=== PATIENT | male | born 1955 | race Caucasian/White ===

== ENCOUNTER 2016-12-31 15:29 | Inpatient (IN) | payer OTHER ==
[~2016-12-31] VITALS: Ht 182.9 cm; Wt 101.0 kg
[2016-12-31 15:31] VITALS: BP 144/91; PULSE 86; RESP 14; O2SAT 98
--- NOTE | 2016-12-31 18:26 | ED.REPORT ---
HPI-Extremity Problem Lower Date of Service Dec 31, 2016 ED Provider: Cecilia Ricketts MD This is a 61 year old male presenting with left lower extremity swelling that began one week ago. Pt states he first developed left calf pain. In the last 2 days, swelling and numbness has worsened in the L calf and is now present in the L ankle. Denies fever, chills, abdominal pain, chest pain, SOB, or diaphoresis. Denies recent prolonged periods of immobilization or recent surgeries. Pt has been going to physical therapy for L knee injury and last went one week ago when the symptoms began. Nursing Notes Stated Complaint: BLOOD CLOT IN LEFT LEG Chief Complaint: Extremity Trauma Nursing Notes Reviewed: Yes Allergies: Coded Allergies: No Known Allergies (Verified Allergy, Unknown, 04/06/14) Scheduled Ibuprofen (Advil) 200 Mg Capsule 200 MG PO MORNING General Time Seen by MD: 18:24 Chief Complaint Other Hx Obtained From: Patient Arrived By: Walk-in Onset Occurred: 1 week ago Symptom Duration: Since onset Severity: Current: Moderate Pertinent Negative: Pt denies other symptoms Recent Healthcare: No recent doctor visit, No recent hospitalization Similar Sx Previous: No Past Medical History Past Medical History Hx L knee injury, undergoing physical therapy at this time Past Surgical History Denies Ambulatory Status Independent Review of Systems Constitutional: Denies: Chills, Fever Musculoskeletal: Reports: Extremity pain, Extremity swelling, Denies: Back pain, Neck pain Neurologic: Reports: Numbness, Denies: Headache, Weakness Complete sys rev & neg: except as marked. Respiratory: Denies: Non-productive cough, Shortness of breath Cardiovascular: Denies: Chest pain GI: Denies: Abdominal pain, Nausea, Vomiting Physical Exam Initial Vital Signs Vital Signs (First) Date Time Temp Pulse Resp B/P Pulse Ox O2 Delivery O2 Flow Rate FiO2 12/31/16 15:31 37.0 86 14 144/91 98 Room Air Initial VS: Reviewed General/Constitutional: Well-developed, Well-nourished Head / Eyes: Atraumatic, Normocephalic, PERRL ENT: Mucous membranes moist, Conjunctiva normal, No scleral icterus Neck: Supple, Non-tender, Full range of motion Respiratory: Breath sounds normal, Clear to auscultation, No respiratory distress Cardiovascular: Regular rate & rhythm, Heart sounds normal, Intact distal pulses Abdomen / GI: Soft, Non-tender, No guarding, No rebound, No distention Upper Extremities: Vascular intact, Neuro intact, No swelling, No tenderness Skin: Warm, Dry, No cyanosis Neurologic: Alert, Oriented, Nonfocal Psychiatric: Mood/affect normal, Behavior normal, Normal thought content Lower Extremity / Pelvis / MS: Full range of motion, Vascular intact L calf significantly larger than R Ankle / Foot: Full range of motion, Neurologic intact, Vascular intact 2+ DP and PT pulses Interpretation & Diagnostics Interpretation & Diagnostics: VENOUS DUPLEX LEFT IMPRESSION: Thrombus within the distal superficial femoral vein, popliteal, and posterior tibial veins. These findings were discussed with the emergency room physician by the docent coordinator at the time of the study. Dictated by: Ellie Otero M.D. on 12/31/2016 at 19:16 Approved by: Ellie Otero M.D. on 12/31/2016 at 19:17 Lab Results Interpretation Result Diagram: 12/31/16 1920 12/31/16 1920 Test 12/31/16 19:19 12/31/16 19:20 Urine Color Yellow (YELLOW) Urine Appearance Clear (CLEAR,HAZY) Urine pH 5.0 (5.0-8.0) Urine Specific [place] 1.028 (1.003-1.035) Urine Protein Negativemg/dL (NEG,TRACE) Urine Glucose (UA) Negativemg/dL (NEGATIVE) Urine Ketones 40mg/dL (NEGATIVE) Urine Occult Blood Small (NEGATIVE) Urine Nitrite Negative (NEGATIVE) Urine Bilirubin Negative (NEGATIVE) Urine Urobilinogen Normalmg/dL (NORMAL) Urine Leukocyte Esterase Negative (NEGATIVE) Urine RBC 0-2/hpf (0-2) Urine WBC 0-5/hpf (0-5) Urine Epithelial Cells None/hpf (NONE-MOD) Urine Crystals None seen (NONE SEEN) Urine Bacteria None/hpf (NONE-FEW) Urine Hyaline Casts None/lpf (NONE) Urine Granular Casts None seen (NONE SEEN) Urine Waxy Casts None seen (NONE SEEN) Urine Red Blood Cell Casts None seen (NONE SEEN) Urine White Blood Cell Casts None seen (NONE SEEN) Urine Mucus None seen (None Seen) Urine Trichomonas None seen (NONE SEEN) Urine Yeast None (NONE SEEN) Urinalysis Comment None Urine Culture Reflexed Not indicated White Blood Count 8.4th/mm3 (3.8-10.1) Red Blood Count 5.80mil/mm3 (4.40-5.80) Hemoglobin 16.2g/dL (13.8-17.2) Hematocrit 49.7% (41.0-50.0) Mean Corpuscular Volume 85.7fL (81-100) Mean Corpuscular Hemoglobin 27.9pg (27.0-35.0) Mean Corpuscular Hemoglobin Concent 32.6% (32.0-37.0) Red Cell Distribution Width 13.5% (12.3-15.4) Platelet Count 182bil/L (150-400) Neutrophils (%) (Auto) 67.0% (40-74) Lymphocytes (%) (Auto) 19.3% (14-46) Monocytes (%) (Auto) 7.9% (4-12) Eosinophils (%) (Auto) 5.0% (0-5) Basophils (%) (Auto) 0.6% (0-3) Prothrombin Time 11.2sec (8.1-12.5) Prothromb Time International Ratio 1.05ratio Hold Urine Received (Received) Sodium Level 136mEq/L (134-144) Potassium Level 4.2mEq/L (3.5-5.2) Chloride Level 95mEq/L (97-108) Carbon Dioxide Level 25mmol/L (18-29) Blood Urea Nitrogen 19mg/dL (6-24) Creatinine 0.70mg/dL (0.76-1.27) Estimat Glomerular Filtration Rate 123mL/min (>59) Glucose Level 77mg/dL (60-99) Calcium Level 9.3mg/dL (8.5-10.1) Re-Eval/Medical Decision Med Decision/Clinical Course 61-year-old male with no past medical history here with left lower extremity redness and swelling. Differential diagnosis includes but is not limited to DVT versus cellulitis versus dependent edema versus bony injury. Patient's exam is most consistent with DVT. His ultrasound is positive for DVT. At this time, I do not feel he requires x-rays or further imaging. He was started on Lovenox in the emergency department, and admitted to the hospitalist for bridging to Coumadin. He is wearing amenable to admission at this time. He had no chest pain or shortness of breath, and I do not feel he requires CTA to rule out PE. Re-Evaluation/Progress : Time of Eval: 19:36 Re-Evaluation/Progress Note: Discussed US results and need for admission. Pt understands and agrees with plan, all questions addressed. Consultation : Referral / Consult Name: Solange Askew MD Consulted With: Hospitalist Call Returned at: 19:43 Veterinary Pathologist: Accepts admit Counseled Regarding: Diagnosis, Lab results, Need for follow-up, Need for admission Discharge & Departure Impression: Primary Impression: DVT (deep venous thrombosis) DVT location: lower extremity Affected thrombotic vein of extremity: unspecified vein of extremity Laterality: left Chronicity: acute Qualified Code: I82.402 - Acute embolism and thrombosis of unspecified deep veins of left lower extremity Disposition: ADMITTED TO HOSPITAL Discharge Condition All VS Reviewed: Yes Condition: Stable Referrals: Wallace Perez MD (PCP) Scribe Attestation Portions of this note were transcribed by Caroline Silverio. I, Dr. Ricketts personally performed the history, physical exam and medical decision-making; I reviewed and confirmed the accuracy of the information in the transcribed note. Signed by: althea Valdivia. 12/31/2016, 23:00. Cecilia Ricketts MD Dec 31, 2016 18:26 CAROLINE SILVERIO Dec 31, 2016 18:37
[2016-12-31 19:03] VITALS: BP 157/89; PULSE 80; O2SAT 97
--- NOTE | 2016-12-31 19:18 | DRSVH ---
PROCEDURE: US VEINOUS LEG DUPLEX UNILATERAL, LEFT INDICATIONS: SWOLLEN LEFT LEG TECHNIQUE: Real-time imaging, as well as color and pulse Doppler interrogation, were performed of the lower extr emity deep veins from the inguinal ligament to the popliteal fossa. COMPARISON: None. FINDINGS: Occlusive thrombus is visualized within the distal left superficial femoral vein, the popli teal vein, and the posterior tibial vein. The common femoral vein and the superior aspect of the supe rficial femoral vein are patent. IMPRESSION: Thrombus within the distal superficial femoral vein, popliteal, and posterior tibial vein s. These findings were discussed with the emergency room physician by the jacker at the time of the study. Dictated by: Ellie Otero M.D. on 12/31/2016 at 19:16 Approved by: Ellie Otero M.D. on 12/31/2016 at 19:17
[2016-12-31 19:30] LABS: BASOPHILS % (AUTO) 0.6 % (0-3); MONOCYTES % (AUTO) 7.9 % (4-12); Mean Corpuscular Hemoglobin 27.9 pg (27.0-35.0); Mean Corpuscular Volume 85.7 fL (81-100); Platelet Count 182 bil/L (150-400)
[2016-12-31 19:59] LABS: INR 1.05 ratio
[2016-12-31] MEDS ORDERED: Alum-Mag Hydrox-Simeth 30 mL Suspension PO PRN ×2 (20:35→21:10)
[2016-12-31] MEDS ORDERED: Ondansetron 2 mg/mL 2 mL Inj IVPUSH PRN ×2 (20:35→21:10)
--- NOTE | 2016-12-31 20:55 | NUR ---
Admit Patient arrived from ED at 2054, received report from ED RN. Patient A&O, denies CP, SOB, and abdominal discomfort at this time. Oriented to room, call light, phone, and all belongings accounted for.
[2016-12-31 21:03] LABS: APPEARANCE,URINE CLEAR (CLEAR,HAZY); COLOR,URINE YELLOW (YELLOW)
[2016-12-31 21:04] LABS: OCCULT BLOOD,URINE SMALL (NEGATIVE); UROBILINOGEN,URINE NORMAL (NORMAL)
[2016-12-31 21:10] VITALS: BP 154/86; PULSE 72; RESP 18; O2SAT 97
[2016-12-31] MEDS ORDERED: Polyethylene Glycol (PEG) 17 Gm Powder PO PRN (21:10)
[2016-12-31] MEDS ORDERED: IBUP200C11 PO (21:26)
--- NOTE | 2016-12-31 21:30 | PCM.HPMED ---
Subjective Date of Service Dec 31, 2016 Primary Provider: Admitting Physician: Solange Askew MD Primary Care Physician: Wallace Perez MD Attending Physician: Solange Askew MD Admit Status: From the Emergency Department, 23-Hour Observation, Non-Telemetry Chief Complaint: Left leg swelling 1 day History of Present Illness: This is a 61-year-old male who had been having some left knee problems over the past several months. He has been going to physical therapy for this as ordered by his primary care provider. He notes no significant improvement in the pain. He notes nothing unusual that occurred recently no immobilization for a long period of time with travel no injury recently and yesterday noticed increased swelling of his left leg up to about his knee area. He denies any chest pain or shortness of breath. Eyes any fevers or chills. His evaluation in the emergency room includes left venous duplex which shows thrombus within the distal superficial femoral vein and popliteal and posterior tibial veins. He notes no prior history of similar. He does note that both his sister and mother have a history of blood clots. He is not aware that they had been tested for any inherited coagulopathy. Review of Systems: All other review of systems are reviewed and are negative except for as in history of present illness Allergies Coded Allergies: No Known Allergies (Verified Allergy, Unknown, 04/06/14) Home Medications None per patient PMH Past Medical History Hx L knee injury, undergoing physical therapy at this time Past Surgical History Denies Family History Mother and sister with a history of DVTs Social History Hx Alcohol Use: Yes (1 drink/week) Hx Substance Use: No Hx Tobacco Use: No Living Arrangement: with Family Exam Vital Signs Vital Sign - Last Date Time Temp Pulse Resp B/P Pulse Ox O2 Delivery O2 Flow Rate FiO2 12/31/16 21:10 37.0 72 18 154/86 97 Room Air Exam Constitutional: Middle-aged man in no acute distress Head: Normocephalic atraumatic Eyes: PERRLA DC EOMI Mouth: No lesions Neck no adenopathy Chest clear to auscultation Cor regular rate and rhythm S1-S2 without murmur Abdomen is soft nontender bowel sounds present extremity exam right is no pedal edema left reveals welling extending up to just below his knee. No erythema noted no rash noted area are some tenderness to palpation over his left calf area. Vascular is intact of the bilateral extremities. Lab and Diagnostics Labs Laboratory Tests 72 Hours Test 12/31/16 19:19 12/31/16 19:20 Urine Color Yellow (YELLOW) Urine Appearance Clear (CLEAR,HAZY) Urine pH 5.0 (5.0-8.0) Urine Specific [place] 1.028 (1.003-1.035) Urine Protein Negativemg/dL (NEG,TRACE) Urine Glucose (UA) Negativemg/dL (NEGATIVE) Urine Ketones 40mg/dL (NEGATIVE) Urine Occult Blood Small (NEGATIVE) Urine Nitrite Negative (NEGATIVE) Urine Bilirubin Negative (NEGATIVE) Urine Urobilinogen Normalmg/dL (NORMAL) Urine Leukocyte Esterase Negative (NEGATIVE) Urine RBC 0-2/hpf (0-2) Urine WBC 0-5/hpf (0-5) Urine Epithelial Cells None/hpf (NONE-MOD) Urine Crystals None seen (NONE SEEN) Urine Bacteria None/hpf (NONE-FEW) Urine Hyaline Casts None/lpf (NONE) Urine Granular Casts None seen (NONE SEEN) Urine Waxy Casts None seen (NONE SEEN) Urine Red Blood Cell Casts None seen (NONE SEEN) Urine White Blood Cell Casts None seen (NONE SEEN) Urine Mucus None seen (None Seen) Urine Trichomonas None seen (NONE SEEN) Urine Yeast None (NONE SEEN) Urinalysis Comment None Urine Culture Reflexed Not indicated White Blood Count 8.4th/mm3 (3.8-10.1) Red Blood Count 5.80mil/mm3 (4.40-5.80) Hemoglobin 16.2g/dL (13.8-17.2) Hematocrit 49.7% (41.0-50.0) Mean Corpuscular Volume 85.7fL (81-100) Mean Corpuscular Hemoglobin 27.9pg (27.0-35.0) Mean Corpuscular Hemoglobin Concent 32.6% (32.0-37.0) Red Cell Distribution Width 13.5% (12.3-15.4) Platelet Count 182bil/L (150-400) Neutrophils (%) (Auto) 67.0% (40-74) Lymphocytes (%) (Auto) 19.3% (14-46) Monocytes (%) (Auto) 7.9% (4-12) Eosinophils (%) (Auto) 5.0% (0-5) Basophils (%) (Auto) 0.6% (0-3) Prothrombin Time 11.2sec (8.1-12.5) Prothromb Time International Ratio 1.05ratio Hold Urine Received (Received) Sodium Level 136mEq/L (134-144) Potassium Level 4.2mEq/L (3.5-5.2) Chloride Level 95mEq/L (97-108) Carbon Dioxide Level 25mmol/L (18-29) Blood Urea Nitrogen 19mg/dL (6-24) Creatinine 0.70mg/dL (0.76-1.27) Estimat Glomerular Filtration Rate 123mL/min (>59) Glucose Level 77mg/dL (60-99) Calcium Level 9.3mg/dL (8.5-10.1) Result Diagram: 12/31/16191912/31/161919 X-Rays, CTs and MRIs PROCEDURE: US VEINOUS LEG DUPLEX UNILATERAL, LEFT INDICATIONS: SWOLLEN LEFT LEG TECHNIQUE: Real-time imaging, as well as color and pulse Doppler interrogation, were performed of the lower extremity deep veins from the inguinal ligament to the popliteal fossa. COMPARISON: None. FINDINGS: Occlusive thrombus is visualized within the distal left superficial femoral vein, the popliteal vein, and the posterior tibial vein. The common femoral vein and the superior aspect of the superficial femoral vein are patent. IMPRESSION: Thrombus within the distal superficial femoral vein, popliteal, and posterior tibial veins. These findings were discussed with the emergency room physician by the dance hall hostess at the time of the study. Dictated by: Ellie Otero M.D. on 12/31/2016 at 19:16 Approved by: Ellie Otero M.D. on 12/31/2016 at 19:17 12-lead ECG Pending at the time of this dictation Assessment & Plan # Left venous lower extremity DVT, acute, present on admission We will treat with therapeutic subcutaneous Lovenox and initiate warfarin as per pharmacy Check hypercoagulable workup # CODE STATUS Full code Time spent 40 minutes Solange Askew MD Dec 31, 2016 21:30
[2016-12-31] MEDS: HYDROcodone-APAP 5-325 mg Tablet PO PRN (23:06)
--- NOTE | 2016-12-31 23:38 | PCM.CONPHA ---
Subjective Date of Service: Dec 31, 2016 Requesting Provider: Solange Askew MD Left leg swelling 1 day Reason for Pharmacy Consult: Anticoagulation Management Objective Vital Signs Date Time Temp Pulse Resp B/P Pulse Ox O2 Delivery O2 Flow Rate FiO2 12/31/16 21:10 37.0 72 18 154/86 97 Room Air 12/31/16 19:03 37.1 80 157/89 97 Room Air 12/31/16 15:31 37.0 86 14 144/91 98 Room Air Weight (Kilograms): 101.000 Height (Feet): 6 Height (Inches): 0.00 Test 12/31/16 19:19 12/31/16 19:20 Urine Color Yellow (YELLOW) Urine Appearance Clear (CLEAR,HAZY) Urine pH 5.0 (5.0-8.0) Urine Specific [place] 1.028 (1.003-1.035) Urine Protein Negativemg/dL (NEG,TRACE) Urine Glucose (UA) Negativemg/dL (NEGATIVE) Urine Ketones 40mg/dL (NEGATIVE) Urine Occult Blood Small (NEGATIVE) Urine Nitrite Negative (NEGATIVE) Urine Bilirubin Negative (NEGATIVE) Urine Urobilinogen Normalmg/dL (NORMAL) Urine Leukocyte Esterase Negative (NEGATIVE) Urine RBC 0-2/hpf (0-2) Urine WBC 0-5/hpf (0-5) Urine Epithelial Cells None/hpf (NONE-MOD) Urine Crystals None seen (NONE SEEN) Urine Bacteria None/hpf (NONE-FEW) Urine Hyaline Casts None/lpf (NONE) Urine Granular Casts None seen (NONE SEEN) Urine Waxy Casts None seen (NONE SEEN) Urine Red Blood Cell Casts None seen (NONE SEEN) Urine White Blood Cell Casts None seen (NONE SEEN) Urine Mucus None seen (None Seen) Urine Trichomonas None seen (NONE SEEN) Urine Yeast None (NONE SEEN) Urinalysis Comment None Urine Culture Reflexed Not indicated White Blood Count 8.4th/mm3 (3.8-10.1) Red Blood Count 5.80mil/mm3 (4.40-5.80) Hemoglobin 16.2g/dL (13.8-17.2) Hematocrit 49.7% (41.0-50.0) Mean Corpuscular Volume 85.7fL (81-100) Mean Corpuscular Hemoglobin 27.9pg (27.0-35.0) Mean Corpuscular Hemoglobin Concent 32.6% (32.0-37.0) Red Cell Distribution Width 13.5% (12.3-15.4) Platelet Count 182bil/L (150-400) Neutrophils (%) (Auto) 67.0% (40-74) Lymphocytes (%) (Auto) 19.3% (14-46) Monocytes (%) (Auto) 7.9% (4-12) Eosinophils (%) (Auto) 5.0% (0-5) Basophils (%) (Auto) 0.6% (0-3) Prothrombin Time 11.2sec (8.1-12.5) Prothromb Time International Ratio 1.05ratio Hold Urine Received (Received) Sodium Level 136mEq/L (134-144) Potassium Level 4.2mEq/L (3.5-5.2) Chloride Level 95mEq/L (97-108) Carbon Dioxide Level 25mmol/L (18-29) Blood Urea Nitrogen 19mg/dL (6-24) Creatinine 0.70mg/dL (0.76-1.27) Estimat Glomerular Filtration Rate 123mL/min (>59) Glucose Level 77mg/dL (60-99) Calcium Level 9.3mg/dL (8.5-10.1) Assessment/Plan Assessment/Plan A: * Warfarin dosing by pharmacy for 61 y/o man with LLE DVT * He is being started on therapeutic enoxaparin 100 mg every 12 hours * INR is baseline at 1 * No significant drug interactions with warfarin and current medications P: * Give one dose of warfarin 5 mg tonight * Follow daily INR trend and determine dosing based on INR Thank you. Pharmacy will continue to follow. Corinna Whitten, PharmD Corinna Whitten Dec 31, 2016 23:38
[2017-01-01] MEDS: Sodium Chloride LOK Flush 10 mL Syringe IVFLUSH SCH ×3 (00:29→16:30)
[2017-01-01 01:00] VITALS: BP 104/63; PULSE 79; RESP 16; O2SAT 95
[2017-01-01 05:45] VITALS: BP 123/78; PULSE 61; RESP 16; O2SAT 96
[2017-01-01 06:31] LABS: Mean Corpuscular Hemoglobin 28.1 pg (27.0-35.0); Mean Corpuscular Volume 86.6 fL (81-100)
[2017-01-01 06:54] LABS: INR 1.03 ratio
--- NOTE | 2017-01-01 07:53 | PCM.PHAPRO ---
Progress Date of Service: Jan 01, 2017 Left leg swelling 1 day ANTICOAGULATION MANAGEMENT BY PHARMACY -INDICATION: LLE DVT -HOME DOSE: NEW START -CONCURRENT ANTICOAGULATION: ENOXAPARIN 100 MG BID -CRCL: 151.3 ML/MIN -COAG TRENDS: -Jan 01-Dec 1.05 1.03 ~ -0.02 5 5 -[id number] SCORE: 0 PLAN: A: Warfarin dosing by pharmacy for 61 y/o man with LLE DVT He is being started on therapeutic enoxaparin 100 mg every 12 hours INR is baseline at 1 No significant drug interactions with warfarin and current medications P: Give one dose of warfarin 5 mg tonight Follow daily INR trend and determine dosing based on INR Pharmacy appreciates consult and will continue to monitor. THANKS! Sonia Taylor PharmD Jan 01, 2017 07:53
--- NOTE | 2017-01-01 09:30 | NUR ---
CT Pt leaves via WC with floor staff to CT. Addendum: 01/01/17 at 0946 by BETTINA HUERTA RN Pt arrives back to floor post CT.
--- NOTE | 2017-01-01 10:19 | DRSVH ---
PROCEDURE: CT ANGIO CHEST PULMONARY EMBOLISM ([id number]) INDICATIONS: PT HAS DVT IN LEFT LEG. TECHNIQUE: After the administration of intravenous contrast, 2 mm thick sections acquired from the pulmonary api shade to the posterior costophrenic angles. 3-dimensional maximum intensity projection (MIP) coronal a nd sagittal reformats were then acquired through the thorax. For radiation dose reduction, the follo wing was used: automated exposure control, adjustment of mA and/or kV according to patient size. COMPARISON: None. FINDINGS: Image quality: Excellent. Pulmonary arteries: Left upper lobe segmental pulmonary embolism is seen image 43. Multiple right low er lobe segmental pulmonary emboli also noted. Lungs and pleura: Bibasilar scarring/atelectasis. No pleural effusion or pneumothorax. Mediastinum: Heart size is normal, without pericardial effusion. No mediastinal or hilar adenopathy . Thoracic aorta is normal in caliber and enhancement. Esophagus is normal in caliber, without hiat al hernia. Bones and chest wall: No suspicious bony lesions. Ribs and thoracic spine appear intact throughout. Thyroid gland negative. No axillary or supraclavicular adenopathy. Abdomen: Possible left renal cyst although incompletely visualized and technically indeterminate. If clinically desired this could be followed up with renal ultrasound IMPRESSION: Bilateral pulmonary emboli as above. Findings were immediately and personally telephoned to Dr. King 1018 hours 01/01/17 (who will conve y them to Dr. Dior) Dictated by: Arden Reeves M.D. on 01/01/2017 at 10:01 Approved by: Arden Reeves M.D. on 01/01/2017 at 10:18
[2017-01-01 10:45] VITALS: BP 144/84; PULSE 73; RESP 17; O2SAT 97
--- NOTE | 2017-01-01 12:58 | DRSVH ---
PROCEDURE: CT ABDOMEN AND PELVIS WITH CONTRAST ([id number]) INDICATIONS: Mass TECHNIQUE: After the administration of oral and intravenous contrast, 5 mm thick sections acquired from the diap hragms to the symphysis. 5 mm thick coronal and sagittal reformats were performed. For radiation do se reduction, the following was used: automated exposure control, adjustment of mA and/or kV accordi ng to patient size. COMPARISON: [facility], CT, CT ANGIO CHEST PE, 01/01/2017, 9:41. [facility] est , CT, ABD/PELVIS W/CON (PNL), 06/09/2008, 19:02. FINDINGS: Image quality: Excellent. ABDOMEN: Lung bases: Lung bases are clear. Right posterior sulcus scarring/atelectasis Heart size is normal. Solid organs: Liver and spleen are normal in size and enhancement. Gallbladder negative. Biliary s ystem is non-dilated. Pancreas enhances normally. No adrenal nodules. Kidneys are normal in size a nd enhancement, without hydronephrosis. Peritoneum and bowel: Stomach, small bowel, and colon loops are normal in caliber and wall thickness . No free fluid or air. Bilateral presumed renal cysts although technically too small to characteri ze definitively. The appendix is not definitely identified however no suspicious right lower quadrant inflammatory changes Nodes and vessels: No retroperitoneal or mesenteric adenopathy. Aorta and inferior vena cava are no rmal in caliber. Miscellaneous: No ventral hernias. Mild amount of subcutaneous gas in the left anterior abdominal w all possibly due to injections alone please correlate clinically. PELVIS: Genitourinary: Bladder decompressed therefore unremarkable Miscellaneous: No inguinal hernias or adenopathy. Bones: No suspicious bony lesions. Scoliosis and multilevel discogenic changes. No vertebral body co mpression fractures. IMPRESSION: Bilateral presumed renal cysts. Appendix not visualized however no suspicious right lower quadrant inflammatory changes. Please corre late clinically and laboratory data. Elsewhere, no acute abnormality. No CT evidence of tumor or metastatic disease. Dictated by: Arden Reeves M.D. on 01/01/2017 at 12:48 Approved by: Arden Reeves M.D. on 01/01/2017 at 12:57
--- NOTE | 2017-01-01 13:49 | PCM.PNMED ---
Subjective Date of Service Jan 01, 2017 Subjective Follow-up follow direction me to DVT. Patient seen and examined at bedside. Medical record reviewed. Plan of care discussed with nursing staff. Patient is feeling somewhat better today. He denied chest pain or shortness of breath, no fever no chills, no given open no nausea no vomiting Exam Vital Signs Vital Sign - Last Date Time Temp Pulse Resp B/P Pulse Ox O2 Delivery O2 Flow Rate FiO2 01/01/17 10:45 37.0 73 17 144/84 97 Room Air Exam General: Well-nourished male, in bed comfortably in much distress, pleasant. Neck is supple, retrograde midline, no JVD. Chest: Normal respiratory effort Lung: Clear bilaterally no crackles no wheezing Heart: S1-S2 regular rate and murmur no gallop Abdomen: Soft , nontender , nondistended, audible bowel sounds all quadrants HEENT: Left lower extremity begin dilated in the right, no calf tenderness, no cyanosis Neuro: Grossly nonfocal IVs and Medications Medications Reviewed: Medications were reviewed in detail Lab and Diagnostics Result Diagram: 01/01/17 0613 12/31/16 1920 X-Rays, CTs and MRIs PROCEDURE: US VEINOUS LEG DUPLEX UNILATERAL, LEFT INDICATIONS: SWOLLEN LEFT LEG TECHNIQUE: Real-time imaging, as well as color and pulse Doppler interrogation, were performed of the lower extremity deep veins from the inguinal ligament to the popliteal fossa. COMPARISON: None. FINDINGS: Occlusive thrombus is visualized within the distal left superficial femoral vein, the popliteal vein, and the posterior tibial vein. The common femoral vein and the superior aspect of the superficial femoral vein are patent. IMPRESSION: Thrombus within the distal superficial femoral vein, popliteal, and posterior tibial veins. These findings were discussed with the emergency room physician by the machine operator packaging at the time of the study. Dictated by: Ellie Otero M.D. on 12/31/2016 at 19:16 Approved by: Ellie Otero M.D. on 12/31/2016 at 19:17 Pulmonary arteries: Left upper lobe segmental pulmonary embolism is seen image 43. Multiple right lower lobe segmental pulmonary emboli also noted. Lungs and pleura: Bibasilar scarring/atelectasis. No pleural effusion or pneumothorax. Mediastinum: Heart size is normal, without pericardial effusion. No mediastinal or hilar adenopathy. Thoracic aorta is normal in caliber and enhancement. Esophagus is normal in caliber, without hiatal hernia. Bones and chest wall: No suspicious bony lesions. Ribs and thoracic spine appear intact throughout. Thyroid gland negative. No axillary or supraclavicular adenopathy. Abdomen: Possible left renal cyst although incompletely visualized and technically indeterminate. If clinically desired this could be followed up with renal ultrasound 12-lead ECG Pending at the time of this dictation Assessment & Plan 1. Left venous lower extremity DVT, acute, present on admission 2. Bilateral pulmonary embolism 3. Possible hypercoagulable state She is clinically, hemodynamically stable. CT scan of the chest done today showed bilateral pulmonary embolism. At this time will obtain abdominal and pelvic CT scan to rule out intra- abdominal malignancy as his DVT seems to be unprovoked. Continue subcutaneous Lovenox and Coumadin at this time. I discuss with social work therapist to arrange for SUKHJINDER on discharge bending insurance approval. 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 Risk and benefit of both chest of treatment were explained to him. High-profile laden mutation, antiphospholipid antibody, protein C and S level are pending. Discharge anticipated within 24-48 hours Pain Evaluation: Adequate Pain Control VTE Prophylaxis: Theraputic Anticoag with Warfarin Resuscitation Status: CPR: Attempt Resuscitation Time spent 35 minutes Austen Dior MD Jan 01, 2017 13:49
[2017-01-01 14:01] VITALS: BP 151/77; PULSE 77; RESP 16; O2SAT 96
[2017-01-01] MEDS: 0.9% Sodium Chloride 1,000 ML IV SCH (14:11)
--- NOTE | 2017-01-01 15:44 | NUR ---
Social Work-screening: Data:EMR Reviewed. Pt is 61 y/o male who was admitted on 12/31/16 for DVT per H&P. Pt's insurance is [employer] and PCP is Wallace Perez MD. EMR reviewed. Pt resides at home with where he remains independent with ADLs. Pt has been up independent with ADls. would like SW to check RX for Praxada and Eliquis. SW to follow up with pt tomorrow to discuss pharmacy and send RX to be checked. SW will continue to follow. Assessment:Pt who is independent at baseline. Plan:Pt to discharge home with when medically stable via POV. SW to follow up with pt tomorrow and send in RX to pharmacy to check pt's coverage for Praxada and Eliquis. SW will continue to follow. KARINA Oshea
[2017-01-01 17:09] VITALS: BP 131/80; PULSE 77; RESP 18; O2SAT 97
--- NOTE | 2017-01-01 17:35 | NUR ---
Anxiety / Restless legs/ Education It was noted that the pt seems to be very anxious about everything that is going on. MD did go in and speak with pt which seemed to help some. Pt sits in bed and is constantly moving his legs, shaking his legs, etc. He said that he typically sleeps fine at home but would like a [place] tonight to help keep his pain tolerable in order to get some quality sleep. Medication information sheet given to pt by MD for presumptive Eliquis medication in which pt will be on after discharge. Care continues
[2017-01-01 20:35] VITALS: BP 124/67; PULSE 69; RESP 16; O2SAT 95
[2017-01-01] MEDS: HYDROcodone-APAP 5-325 mg Tablet PO PRN (21:17)
[2017-01-02] MEDS: 0.9% Sodium Chloride 1,000 ML IV SCH ×2 (00:25→06:35)
[2017-01-02] MEDS: Sodium Chloride LOK Flush 10 mL Syringe IVFLUSH SCH ×2 (00:30→08:24)
[2017-01-02 00:40] VITALS: BP 122/71; PULSE 68; RESP 16; O2SAT 96
[2017-01-02] MEDS: HYDROcodone-APAP 5-325 mg Tablet PO PRN ×2 (01:57→11:14)
[2017-01-02 05:05] VITALS: BP 150/91; PULSE 72; RESP 16; O2SAT 96
--- NOTE | 2017-01-02 05:09 | NUR ---
pain c/o left lower leg pain on rate of 4-5/10 pain. administered PRN PO [place], which was effective with no further complaints. VVS. Bed is locked an in low position. call light within reach. will continue to monitor.
[2017-01-02 06:32] LABS: INR 1.03 ratio
[2017-01-02 06:35] LABS: Mean Corpuscular Hemoglobin 27.7 pg (27.0-35.0)
--- NOTE | 2017-01-02 10:13 | PCM.DIMED ---
Discharge Instructions Date of Service Jan 02, 2017 Dates of Hospitalization Dec 31, 2016 at 20:06 Discharge Diagnosis Discharge Diagnosis Left Lower Extremely DVT , Bilateral Pulmonary Embolism Diet No restrictions Activity No restrictions Call your provider Shortness of breath, Bleeding, Chest pain Patient Instructions Follow-up plan Follow up " hyper-coagulable state" workup testing as outpatient with Hematology within one week Follow up with primary care doctor in one week. Follow-up with PCP in: 2 weeks Follow-up in: 1 week (Hematology ) Austen Dior MD Jan 02, 2017 10:13
[2017-01-02] MEDS ORDERED: HYDR-4003 PO (10:20)
[2017-01-02] MEDS ORDERED: APIX5TAB PO ×2 (10:20→12:32)
--- NOTE | 2017-01-02 10:30 | NUR ---
Social Work-discharge: Data:EMR Reviewed. Pt is on day 2 of hospitalization for DVT per H&P. Pt is medicaly stable to discharge today. VANCE confirmed with MD that pt has checked with insurance and they will cover Eliquis for 60 tablets. MD to re-write RX and provided this to pt, no need for SW to run RX. SW followed up with pt at bedside who is agreeable and states he has questions about billing. Pt states that this injury is from a work injury and should be billed under L&I, pt states he spoke with L&I. VANCE took copy of pt's L&I card and spoke with Tahmina in Insurance verification. Tahmina states she will add in L&I as primary insurance, VANCE faxed copy of card to Tahmina at [phone]. Pt updated and agreeable. Pt's son to provide transport home. No other discharge needs identified. All updated and agreeable to plan. Assessment:Pt who is independent at baseline. Plan:Pt to discharge home today via POV. Pt's insurance covers Eliquis and L&I information provided to insurance verification. No other discharge needs identified. All updated and agreeable to plan. KARINA Oshea
--- NOTE | 2017-01-02 11:27 | NUR ---
Edenilson green MD at regarding Eliquis prescription. Patient under the assumption he would be getting 60 tabs instead of 30 tabs. Awaiting response from
--- NOTE | 2017-01-02 11:44 | NUR ---
Discharge Patient discharged home. IV DC'd and intact. Discharge instructions with no questions. Vicodin and Eliquis prescriptions sent with patient. Eliquis, DVT and Vicodin teaching information sent with patient. Patient gathered all belongings. Nurse escorted patient out via walking.
--- NOTE | 2017-01-02 12:43 | PCM.DC.MED ---
Discharge Summary Date of Service Jan 02, 2017 Dates of Hospitalization Date of Hospital Admission Dec 31, 2016 at 20:06 Date of Discharge: Jan 02, 2017 Providers: Admitting Physician: Solange Askew MD Primary Care Physician: Wallace Perez MD Attending Physician: Solange Askew MD Diagnosis at Time of Discharge Diagnosis at Time of Discharge Left Lower Extremely DVT , Bilateral Pulmonary Embolism Consultations None Procedures XRay, CTs & MRIs PROCEDURE: US VEINOUS LEG DUPLEX UNILATERAL, LEFT INDICATIONS: SWOLLEN LEFT LEG TECHNIQUE: Real-time imaging, as well as color and pulse Doppler interrogation, were performed of the lower extremity deep veins from the inguinal ligament to the popliteal fossa. COMPARISON: None. FINDINGS: Occlusive thrombus is visualized within the distal left superficial femoral vein, the popliteal vein, and the posterior tibial vein. The common femoral vein and the superior aspect of the superficial femoral vein are patent. IMPRESSION: Thrombus within the distal superficial femoral vein, popliteal, and posterior tibial veins. These findings were discussed with the emergency room physician by the certified wellness program coordinator at the time of the study. Dictated by: Ellie Otero M.D. on 12/31/2016 at 19:16 Approved by: Ellie Otero M.D. on 12/31/2016 at 19:17 Pulmonary arteries: Left upper lobe segmental pulmonary embolism is seen image 43. Multiple right lower lobe segmental pulmonary emboli also noted. Lungs and pleura: Bibasilar scarring/atelectasis. No pleural effusion or pneumothorax. Mediastinum: Heart size is normal, without pericardial effusion. No mediastinal or hilar adenopathy. Thoracic aorta is normal in caliber and enhancement. Esophagus is normal in caliber, without hiatal hernia. Bones and chest wall: No suspicious bony lesions. Ribs and thoracic spine appear intact throughout. Thyroid gland negative. No axillary or supraclavicular adenopathy. Abdomen: Possible left renal cyst although incompletely visualized and technically indeterminate. If clinically desired this could be followed up with renal ultrasound ECG 12 Lead Pending at the time of this dictation Other Diagnostics CT angiogram with PE protocol Brief History This is a 61-year-old male who had been having some left knee problems over the past several months. He has been going to physical therapy for this as ordered by his primary care provider. He notes no significant improvement in the pain. He notes nothing unusual that occurred recently no immobilization for a long period of time with travel no injury recently and yesterday noticed increased swelling of his left leg up to about his knee area. He denies any chest pain or shortness of breath. Eyes any fevers or chills. His evaluation in the emergency room includes left venous duplex which shows thrombus within the distal superficial femoral vein and popliteal and posterior tibial veins. He notes no prior history of similar. He does note that both his sister and mother have a history of blood clots. He is not aware that they had been tested for any inherited coagulopathy. Hospital Course 1. Left venous lower extremity DVT, acute, present on admission 2. Bilateral pulmonary embolism : Acute present on admission 3. Possible hypercoagulable state She is clinically, hemodynamically stable. CT scan of the chest showed bilateral pulmonary embolism. \\ abdominal and pelvic CT scan did not show intraabdominal mass or lesion suspicious for malignancy Hypercoagulable panel is pending and patient will follow that as outpatient with oncology and PCP . Patient is discharged home in good and stable condition. He was able to ambulate and has no SOB, dizziness or palpitation. Exam Vital Signs (Last) Date Time Temp Pulse Resp B/P Pulse Ox O2 Delivery O2 Flow Rate FiO2 01/02/17 05:05 36.0 72 16 150/91 96 Room Air Exam General: Well-nourished male, in bed comfortably. Neck: Supple no JVD no carotid bruit Chest: Normal respiratory effort, no use of accessory muscle. Lung: Clear bilaterally, no crackle, no wheezing Heart: S1-S2 regular rate and rhythm without abnormal murmur. Abdomen: Soft nontender nondistended. Neurological : Grossly nonfocal Test 12/31/16 19:19 12/31/16 19:20 01/01/17 06:13 01/02/17 05:15 Urine Color Yellow (YELLOW) Urine Appearance Clear (CLEAR,HAZY) Urine pH 5.0 (5.0-8.0) Urine Specific [place] 1.028 (1.003-1.035) Urine Protein Negativemg/dL (NEG,TRACE) Urine Glucose (UA) Negativemg/dL (NEGATIVE) Urine Ketones 40mg/dL (NEGATIVE) Urine Occult Blood Small (NEGATIVE) Urine Nitrite Negative (NEGATIVE) Urine Bilirubin Negative (NEGATIVE) Urine Urobilinogen Normalmg/dL (NORMAL) Urine Leukocyte Esterase Negative (NEGATIVE) Urine RBC 0-2/hpf (0-2) Urine WBC 0-5/hpf (0-5) Urine Epithelial Cells None/hpf (NONE-MOD) Urine Crystals None seen (NONE SEEN) Urine Bacteria None/hpf (NONE-FEW) Urine Hyaline Casts None/lpf (NONE) Urine Granular Casts None seen (NONE SEEN) Urine Waxy Casts None seen (NONE SEEN) Urine Red Blood Cell Casts None seen (NONE SEEN) Urine White Blood Cell Casts None seen (NONE SEEN) Urine Mucus None seen (None Seen) Urine Trichomonas None seen (NONE SEEN) Urine Yeast None (NONE SEEN) Urinalysis Comment None Urine Culture Reflexed Not indicated Neutrophils (%) (Auto) 67.0% (40-74) Lymphocytes (%) (Auto) 19.3% (14-46) Monocytes (%) (Auto) 7.9% (4-12) Eosinophils (%) (Auto) 5.0% (0-5) Basophils (%) (Auto) 0.6% (0-3) Hold Urine Received (Received) White Blood Count 7.3th/mm3 (3.8-10.1) Red Blood Count 4.99mil/mm3 (4.40-5.80) Hemoglobin 13.8g/dL (13.8-17.2) Hematocrit 43.4% (41.0-50.0) Mean Corpuscular Volume 87.0fL (81-100) Mean Corpuscular Hemoglobin 27.7pg (27.0-35.0) Mean Corpuscular Hemoglobin Concent 31.8% (32.0-37.0) Red Cell Distribution Width 13.5% (12.3-15.4) Platelet Count 193bil/L (150-400) Prothrombin Time 11.0sec (8.1-12.5) Prothromb Time International Ratio 1.03ratio Sodium Level 139mEq/L (134-144) Potassium Level 4.5mEq/L (3.5-5.2) Chloride Level 100mEq/L (97-108) Carbon Dioxide Level 26mmol/L (18-29) Blood Urea Nitrogen 18mg/dL (6-24) Creatinine 0.74mg/dL (0.76-1.27) Estimat Glomerular Filtration Rate 115mL/min (>59) Glucose Level 87mg/dL (60-99) Calcium Level 8.8mg/dL (8.5-10.1) Discharge Medications Discharge Medications Apixaban (Eliquis) 5 Mg Tablet 5 MG PO BID Prescribed by: KIMBERLY DIOR MD As needed Hydrocodone-Acetaminophen 5-325 mg (Hydrocodone-Acetaminophen 5-325 mg) 1 Each Tablet 1 TABLET PO Q6H PRN PRN Knee and left leg pain Prescribed by: KIMBERLY DIOR MD Followup Plan Disposition: Home Follow-up plan Follow up " hyper-coagulable state" workup testing as outpatient with Hematology within one week Follow up with primary care doctor in one week. Discharge Diet: No restrictions Discharge Activity: No restrictions Follow-up with PCP in: 2 weeks Follow-up in: 1 week (Hematology ) Time spent 35 minutes Kimberly Dior MD Jan 02, 2017 12:43
[2017-01-03 08:10] LABS: Protein C-Functional 88 % (73-180)
== END 2017-01-02 11:44 | disposition home or self-care (01) | DRG 299 ==
LOC: SED 15:29 → OSC 20:06 → OBSVTOIN 20:06
PROVIDERS: ADMIT Specialist; ATTEND Specialist
DX: I82.402 Acute embolism and thrombosis of unspecified deep veins of left lower extremity (principal); I26.99 Other pulmonary embolism without acute cor pulmonale; R19.00 Intra-abdominal and pelvic swelling, mass and lump, unspecified site